=== PATIENT | male | born 1980 | race American Indian/Alaskan Native ===

== ENCOUNTER 2019-10-23 01:04 | Emergency (ER) | payer MEDICARE ==
--- NOTE | 2019-10-23 01:43 | Emergency Department Report ---
<DAVID HENRY - Last Filed: 10/23/19 04:31> ED Psych HPI - General Chief Complaint: Psych Stated Complaint: MH EVALUATION Time Seen by Provider: 10/23/19 01:37 Source: patient, police Mode of arrival: Ambulatory - History of Present Illness Initial Comments: 39-year-old male reports history of bipolar, schizophrenia, presents to ED with suicidal ideation. Patient reports he is fed up with life, states "life is not perfect," and states he wants to . Patient reported to police officers that he wanted to cut his wrists. Patient reports he has been off of his psychiatric medications for several months. Patient admits to drinking tonight, denies any drug use. MD Complaint: suicidal ideation -: During the night Associated Psychiatric Symptoms: depression, suicidal ideation Quality: constant Improves With: none Worsens With: none Context: recent alcohol abuse, not taking psychiatric Associated Symptoms: denies other symptoms Treatments Prior to Arrival: none If Self Harm: has plan (to cut wrists) - Related Data Allergies Allergy/AdvReac Type Severity Reaction Status Date / Time No Known Allergies Allergy Unverified 10/23/19 01:26 ED Review of Systems Comment: All other systems reviewed and negative Psychiatric: depression, suicidal thoughts. denies: auditory hallucinations, visual hallucinations, homicidal thoughts ED Past Medical Hx - Past Medical History Previous Medical History?: Yes Hx Psychiatric Treatment: Yes (Bipolar with schizophrenia tendencies) Additional medical history: Chronic Back PaIN - Surgical History Past Surgical History?: No - Social History Smoking Status: Current Every Day Smoker Substance Use Type: Alcohol, Marijuana ED Physical Exam - General Limitations: No Limitations General appearance: alert, in no apparent distress - Head Head exam: Present: atraumatic, normocephalic - Eye Eye exam: Present: normal appearance, EOMI - ENT ENT exam: Present: mucous membranes moist - Neck Neck exam: Present: normal inspection - Respiratory Respiratory exam: Present: normal lung sounds bilaterally. Absent: respiratory distress - Cardiovascular Cardiovascular Exam: Present: regular rate, normal rhythm - GI/Abdominal GI/Abdominal exam: Present: soft. Absent: distended, tenderness - Extremities Exam Extremities exam: Present: normal inspection - Neurological Exam Neurological exam: Present: alert, oriented X3 - Psychiatric Psychiatric exam: Present: normal affect, normal mood - Skin Skin exam: Present: warm, dry, intact, normal color ED Medical Decision Making - Lab Data Result diagrams: 10/23/19 01:38 10/23/19 01:38 ED Disposition Clinical Impression: Alcohol intoxication, Suicidal ideation Disposition: DC/TX-65 PSY HOSP/PSY UNIT Condition: Stable <BRISANATALIE - Last Filed: 10/23/19 15:21> ED Review of Systems ROS: Stated complaint: MH EVALUATION Other details as noted in HPI ED Course Vital Signs 10/23/19 10/23/19 10/23/19 01:25 01:27 08:17 Temperature 97.3 F L 98 F 98.5 F Pulse Rate 88 96 H 81 Respiratory 18 18 18 Rate Blood Pressure 103/53 Blood Pressure 107/59 146/62 [Left] O2 Sat by Pulse 96 100 97 Oximetry 10/23/19 14:37 Temperature 98.0 F Pulse Rate 92 H Respiratory 18 Rate Blood Pressure Blood Pressure 135/81 [Left] O2 Sat by Pulse 99 Oximetry ED Medical Decision Making - Lab Data Result diagrams: 10/23/19 01:38 10/23/19 01:38 - Medical Decision Making I was approached by the psychiatric rehanger regarding the need for a 1013. The patient had some information filled out by the state highway police officer but there was no 1013 at that time. The patient has active depression and suicidal ideations with a plan to cut his wrist. Patient came in last night with alcohol intoxication with a blood alcohol level of 0.34. At this time his blood alcohol level should be under the legal limit and he is certainly sober. He still expresses suicidal ideations. For this reason I have made the patient a 1013. He also complains of some nausea, abdominal cramping, and it is possible he is starting to exhibit signs of alcohol withdrawal. The patient has been placed on the alcohol withdrawal protocol. He does not appear to have any hallucinations, delusions, or signs of delirium tremens. Vital signs stable throughout his ED course thus far. The patient appears medically cleared for psychiatric placement. - Differential Diagnosis Depression, bipolar disorder, substance abuse Critical Care Time: No Critical care attestation.: If time is entered above; I have spent that time in minutes in the direct care of this critically ill patient, excluding procedure time. ED Disposition Is pt being admited?: No
[2019-10-23 01:49] LABS: Basophils # (Auto) 0.1 K/mm3 (0.0-0.1); Basophils % (Auto) 0.9 % (0.0-1.8); Eosinophils # (Auto) 0.3 K/mm3 (0.0-0.4); Eosinophils % (Auto) 3.2 % (0.0-4.3); Lymphocytes # (Auto) 3.9 K/mm3 (1.2-5.4); Mean Corpuscular HGB Conc 35 % (32-34); Mean Corpuscular Volume 97 fl (84-94); Monocytes # (Auto) 0.8 K/mm3 (0.0-0.8); Monocytes % (Auto) 8.5 % (0.0-7.3); Platelet Count 269 K/mm3 (140-440); Red Blood Count 5.05 M/mm3 (3.65-5.03)
[2019-10-23 02:05] LABS: Bilirubin,Urine NEG (Negative); Color,Urine Straw (Yellow)
[2019-10-23 02:06] LABS: Blood,Urine NEG (Negative); Protein,Urine <15 mg/dL mg/dL (Negative); Urobilinogen,Urine < 2.0 mg/dL (<2.0); WBC,Urine < 1.0 /HPF (0.0-6.0)
[2019-10-23 02:10] LABS: BUN/Creatinine Ratio 13; Blood Urea Nitrogen 13 mg/dL (9-20); Hemolysis Index 14
[2019-10-23 02:10] LABS: Amphetamine Screen,Urine PRESUMPTIVE NEGATIVE; Benzodiazepines Screen,Urine PRESUMPTIVE NEGATIVE; Cannabinoid Screen,Urine PRESUMPTIVE NEGATIVE; Cocaine Screen,Urine PRESUMPTIVE NEGATIVE; Methadone Screen,Urine PRESUMPTIVE NEGATIVE; Opiate Screen,Urine PRESUMPTIVE NEGATIVE
[2019-10-23] MEDS ORDERED: LORazepam 2 MG/ML VIAL IV PRN (15:01)
[2019-10-23] MEDS ORDERED: chlordiazePOXIDE 25 MG CAP PO PRN (15:01)
[2019-10-23] MEDS: chlordiazePOXIDE 25 MG CAP PO PRN ×2 (15:23→17:14)
--- NOTE | 2019-10-23 15:26 | XRay Report ---
ABDOMEN 2 VIEW(S) INDICATION / CLINICAL INFORMATION: Abd pain. COMPARISON: None available. FINDINGS: TUBES / LINES: None. BOWEL GAS PATTERN/EXTRALUMINAL GAS: No significant abnormality. No free air. ADDITIONAL FINDINGS: Lung bases are clear. IMPRESSION: 1. No acute abnormality. Signer Name: Abhinav Lyons MD Signed: 10/23/2019 3:21 PM Workstation Name: [id number]
[2019-10-23 15:52] LABS: Alanine Aminotransferase 27 units/L (7-56); Albumin 4.5 g/dL (3.9-5)
[2019-10-23 15:54] LABS: Bilirubin,Direct < 0.2 mg/dL (0-0.2)
[2019-10-23 16:14] VITALS: BP 113/66
== END 2019-10-23 19:34 ==
LOC: ED 01:04
DX: R45.851 Suicidal ideations (principal); F25.0 Schizoaffective disorder, bipolar type; G89.29 Other chronic pain; F17.200 Nicotine dependence, unspecified, uncomplicated; F12.90 Cannabis use, unspecified, uncomplicated; Z72.89 Other problems related to lifestyle
CPT/HCPCS: 36415; 74019; 80048; 80076; 80307; 80320; 81001; 85025; G0480

== ENCOUNTER 2020-12-03 21:19 | Emergency (ER) | payer MEDICARE ==
--- NOTE | 2020-12-03 22:52 | Event Note ---
ED Screening Note Date of service: 12/03/20 Time: 22:50 ED Screening Note: Patient is a 40-year-old -[place] male with a history of chronic alcohol abuse who presents to the ED requesting for alcohol detox. Patient states that he has never been to alcohol detoxification program and admits that he has been drinking alcohol for the last 20 years heavily. Patient denies suicidal or homicidal ideations, hallucinations, nausea, vomiting, abdominal pain, chest pain, shortness of breath, fever, chills, cough, dizziness or palpitations and seizures or syncope. This initial assessment/diagnostic orders/clinical plan/treatment(s) is/are subject to change based on patients health status, clinical progression and re- assessment by fellow clinical providers in the ED. Further treatment and workup at subsequent clinical providers discretion. Patient/guardian urged not to elope from the ED as their condition may be serious if not clinically assessed and managed. Initial orders include: CBC, CMP, UA, urine drug screen, blood alcohol level, acetaminophen level, salicylate level
[2020-12-03 23:54] LABS: Basophils # (Auto) 0.1 K/mm3 (0.0-0.1); Basophils % (Auto) 0.8 % (0.0-1.8); Eosinophils # (Auto) 0.5 K/mm3 (0.0-0.4); Eosinophils % (Auto) 6.4 % (0.0-4.3); Hematocrit 46.4 % (35.5-45.6); Hemoglobin 16.3 gm/dl (11.8-15.2); Lymphocytes # (Auto) 3.5 K/mm3 (1.2-5.4); Lymphocytes % (Auto) 49.1 % (13.4-35.0); Mean Corpuscular HGB Conc 35 % (32-34); Mean Corpuscular Volume 97 fl (84-94); Monocytes # (Auto) 0.4 K/mm3 (0.0-0.8); Monocytes % (Auto) 6.2 % (0.0-7.3); Red Blood Count 4.77 M/mm3 (3.65-5.03); Red Cell Distribution Width 13.8 % (13.2-15.2)
[2020-12-03 23:56] LABS: Platelet Count 131 K/mm3 (140-440)
[2020-12-04 00:01] LABS: BUN/Creatinine Ratio 23; Blood Urea Nitrogen 23 mg/dL (9-20); Calcium 9.1 mg/dL (8.4-10.2); Hemolysis Index 9
--- NOTE | 2020-12-04 00:22 | Emergency Department Report ---
ED Alcohol HPI - General Chief Complaint: Alcohol Stated Complaint: ETOH Time Seen by Provider: 12/04/20 00:16 Source: patient Mode of arrival: Stretcher Limitations: No Limitations - History of Present Illness Initial Comments: Patient is 40 years old male with history of chronic alcoholism and bipolar disorder. Patient presented to the ER requesting medical clearance for alcohol detox. Patient stated that he has been drinking daily for the last 20 years. Patient denies any suicidal or homicidal ideation. No visual or auditory hallucination. MD Complaint: desires rehab, medical clearance for det Chronic Alcohol Use: Yes Recent Trauma: No Associated Symptoms: denies other symptoms Treatments Prior to Arrival: none - Related Data Allergies Allergy/AdvReac Type Severity Reaction Status Date / Time No Known Allergies Allergy Unverified 10/23/19 01:26 ED Review of Systems ROS: Stated complaint: ETOH Other details as noted in HPI Comment: All other systems reviewed and negative Constitutional: denies: chills, fever Respiratory: denies: cough, shortness of breath, SOB with exertion Cardiovascular: denies: chest pain, palpitations Gastrointestinal: denies: abdominal pain, nausea, vomiting Musculoskeletal: denies: back pain Neurological: denies: headache, weakness ED Past Medical Hx - Past Medical History Previous Medical History?: Yes Hx Psychiatric Treatment: Yes (Bipolar with schizophrenia tendencies) Additional medical history: Chronic Back PaIN - Surgical History Past Surgical History?: No - Social History Smoking Status: Current Every Day Smoker Substance Use Type: Alcohol ED Physical Exam - General Limitations: No Limitations General appearance: alert, in no apparent distress - Head Head exam: Present: atraumatic, normocephalic, normal inspection - Eye Eye exam: Present: normal appearance - ENT ENT exam: Present: normal exam, normal orophraynx, mucous membranes moist - Neck Neck exam: Present: normal inspection, full ROM. Absent: tenderness, meningismus - Respiratory Respiratory exam: Present: normal lung sounds bilaterally - Cardiovascular Cardiovascular Exam: Present: regular rate, normal rhythm, normal heart sounds - GI/Abdominal GI/Abdominal exam: Present: soft, normal bowel sounds. Absent: distended, tenderness, guarding, rebound, rigid, organomegaly, mass, bruit, pulsatile mass, hernia - Extremities Exam Extremities exam: Present: normal inspection, full ROM, normal capillary refill. Absent: pedal edema, calf tenderness - Back Exam Back exam: Present: normal inspection, full ROM. Absent: CVA tenderness (R), CVA tenderness (L) - Neurological Exam Neurological exam: Present: alert, oriented X3, CN II-XII intact - Psychiatric Psychiatric exam: Present: normal mood. Absent: depressed, agitated, anxious, flat affect, manic, homicidal ideation, suicidal ideation - Skin Skin exam: Present: warm, intact, normal color ED Course Vital Signs 12/03/20 12/04/20 12/04/20 22:41 00:19 00:30 Temperature 97.8 F Pulse Rate 98 H 81 87 Respiratory 18 13 21 Rate Blood Pressure 119/78 122/76 122/76 O2 Sat by Pulse 96 97 95 Oximetry ED Medical Decision Making - Lab Data Result diagrams: 12/03/20 23:03 12/03/20 23:03 - Medical Decision Making Patient is 40 years old male with history of chronic alcoholism and bipolar disorder. Patient presented to the ER requesting medical clearance for alcohol detox. Patient stated that he has been drinking daily for the last 20 years. Patient denies any suicidal or homicidal ideation. No visual or auditory hallucination. Patient remained stable in the ER. Patient asked for food. Patient still denying any suicidal homicidal ideation. Patient will be referred to outpatient alcohol detox center. Critical care attestation.: If time is entered above; I have spent that time in minutes in the direct care of this critically ill patient, excluding procedure time. ED Disposition Clinical Impression: Alcohol abuse Disposition: DC-01 TO HOME OR SELFCARE Is pt being admited?: No Condition: Stable Instructions: Alcohol Use Disorder Additional Instructions: Patient is medically cleared to be admitted for alcohol detox program. Referrals: PRIMARY CARE, [Primary Care Provider] - 3-5 Days
[2020-12-04 01:13] LABS: Bilirubin,Urine NEG (Negative); Blood,Urine NEG (Negative); Color,Urine Straw (Yellow); Protein,Urine <15 mg/dL mg/dL (Negative); RBC,Urine < 1.0 /HPF (0.0-6.0); Urobilinogen,Urine < 2.0 mg/dL (<2.0); WBC,Urine < 1.0 /HPF (0.0-6.0)
[2020-12-04 01:22] LABS: Amphetamine Screen,Urine PRESUMPTIVE NEGATIVE; Benzodiazepines Screen,Urine PRESUMPTIVE NEGATIVE; Cannabinoid Screen,Urine PRESUMPTIVE NEGATIVE; Cocaine Screen,Urine PRESUMPTIVE NEGATIVE; Methadone Screen,Urine PRESUMPTIVE NEGATIVE; Opiate Screen,Urine PRESUMPTIVE NEGATIVE
[2020-12-04 01:30] VITALS: BP 102/59
== END 2020-12-04 01:30 | disposition home or self-care (01) ==
LOC: ED 21:19
DX: F10.10 Alcohol abuse, uncomplicated (principal); F31.9 Bipolar disorder, unspecified; F17.200 Nicotine dependence, unspecified, uncomplicated
CPT/HCPCS: 36415; 80048; 80307; 80320; 81001; 85025; G0480

== ENCOUNTER 2021-04-11 09:18 | Emergency (ER) | payer MEDICARE ==
[2021-04-11 10:36] VITALS: BP 155/91
--- NOTE | 2021-04-11 11:09 | Emergency Department Report ---
ED General Adult HPI - General Chief complaint: Back Pain/Injury Stated complaint: LEFT FOOT,BACK PAIN PUI?: No Time Seen by Provider: 04/11/21 11:02 Source: patient Mode of arrival: Ambulatory Limitations: No Limitations - History of Present Illness Initial comments: Chief complaint: "My back hurts. I think I broke my toe." HPI: She is a 40-year-old male with history of bipolar disorder and lumbar herniated disc who presents with right pinky toe pain after kicking a door 2 weeks ago. The toe was black and blue. Swelling has improved. 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 He was previously followed by pain management physician for "bulging disks". He received oxycodone and Robaxin. Denies leg weakness, stool fecal incontinence, direct trauma. He denies fever or drug use. He currently takes Prozac and BuSpar as a medication. -: Gradual, week(s) (2 weeks), month(s) (3 months) Location: back (Lower back), lower extremity (Right lower extremity) Severity scale (0 -10): 7 Quality: aching Consistency: constant Improves with: rest, other (Time) Worsens with: none Associated Symptoms: denies other symptoms - Related Data Previous Rx's Medication Instructions Recorded Last Taken Type Ibuprofen [Motrin 400 MG tab] 400 mg PO TID 5 Days #15 tablet 04/11/21 Unknown Rx methOCARBAMOL [Robaxin TAB] 1,000 mg PO Q6H PRN #30 tab 04/11/21 Unknown Rx Allergies Allergy/AdvReac Type Severity Reaction Status Date / Time No Known Allergies Allergy Unverified 10/23/19 01:26 ED Review of Systems ROS: Stated complaint: LEFT FOOT,BACK PAIN Other details as noted in HPI Comment: All other systems reviewed and negative Constitutional: denies: fever Respiratory: denies: cough Cardiovascular: denies: chest pain Gastrointestinal: denies: abdominal pain Musculoskeletal: back pain ED Past Medical Hx - Past Medical History Previous Medical History?: Yes Hx Psychiatric Treatment: Yes (Bipolar with schizophrenia tendencies) Additional medical history: Chronic Back PaIN - Surgical History Past Surgical History?: No - Social History Smoking Status: Current Every Day Smoker Substance Use Type: Alcohol - Medications Home Medications: Home Medications Medication Instructions Recorded Confirmed Last Taken Type Ibuprofen [Motrin 400 MG tab] 400 mg PO TID 5 Days #15 tablet 04/11/21 Unknown Rx methOCARBAMOL [Robaxin TAB] 1,000 mg PO Q6H PRN #30 tab 04/11/21 Unknown Rx ED Physical Exam - General Limitations: No Limitations General appearance: alert, in no apparent distress - Head Head exam: Present: atraumatic, normocephalic - Eye Eye exam: Present: normal appearance - ENT ENT exam: Present: mucous membranes moist - Neck Neck exam: Present: normal inspection, full ROM - Respiratory Respiratory exam: Present: normal lung sounds bilaterally. Absent: respiratory distress, wheezes, rales, rhonchi - Cardiovascular Cardiovascular Exam: Present: regular rate, normal rhythm, normal heart sounds. Absent: systolic murmur, diastolic murmur, rubs, gallop - GI/Abdominal GI/Abdominal exam: Present: soft, normal bowel sounds. Absent: distended, tenderness, guarding, rebound - Rectal Rectal exam: Present: deferred - Extremities Exam Extremities exam: Present: normal inspection - Expanded Lower Extremity Exam Right Lower Leg exam: Present: normal inspection, full ROM. Absent: tenderness, swelling Ankle exam: Present: normal inspection, full ROM. Absent: tenderness, swelling Foot/Toe exam: Present: normal inspection, full ROM. Absent: tenderness, swelling, abrasion, deformity Neuro vascular tendon exam: Present: no vascular compromise - Back Exam Back exam: Present: normal inspection, full ROM. Absent: tenderness, CVA tenderness (R), CVA tenderness (L), muscle spasm, paraspinal tenderness, vertebral tenderness - Neurological Exam Neurological exam: Present: alert, oriented X3, normal gait (Brisk steady gait appears comfortable) - Psychiatric Psychiatric exam: Present: normal affect, normal mood - Skin Skin exam: Present: warm, dry, intact, normal color. Absent: rash ED Course Vital Signs 04/11/21 10:34 Temperature 98.3 F Pulse Rate 68 Respiratory 18 Rate Blood Pressure 155/91 O2 Sat by Pulse 98 Oximetry ED Medical Decision Making - Medical Decision Making 1. Right toe contusion: Well-healed without indication fracture 2. Chronic back pain with history of lumbar degenerative disc disease prescribed ibuprofen Robaxin referred to center specialists Critical care attestation.: If time is entered above; I have spent that time in minutes in the direct care of this critically ill patient, excluding procedure time. ED Disposition Clinical Impression: Contusion of fifth toe, right, Lumbar degenerative disc disease, Acute lumbar myofascial strain Disposition: 01 HOME / SELF CARE / HOMELESS Is pt being admited?: No Does the pt Need Aspirin: No Condition: Stable Instructions: Back Injury Prevention Prescriptions: Ibuprofen [Motrin 400 MG tab] 400 mg PO TID 5 Days #15 tablet methOCARBAMOL [Robaxin TAB] 1,000 mg PO Q6H PRN #30 tab PRN Reason: Muscle Spasm Referrals: CAROLE NULL II, MD [Staff Physician] - 3-5 Days
== END 2021-04-11 11:09 | disposition home or self-care (01) ==
LOC: ED 09:18
DX: S39.012A Strain of muscle, fascia and tendon of lower back, initial encounter (principal); S90.121A Contusion of right lesser toe(s) without damage to nail, initial encounter; M51.36 Other intervertebral disc degeneration, lumbar region; F20.9 Schizophrenia, unspecified; F31.9 Bipolar disorder, unspecified; M54.9 Dorsalgia, unspecified; F17.200 Nicotine dependence, unspecified, uncomplicated; X58.XXXA Exposure to other specified factors, initial encounter; Y93.89 Activity, other specified; Y92.89 Other specified places as the place of occurrence of the external cause; Y99.8 Other external cause status
CPT/HCPCS: 99281

== ENCOUNTER 2021-12-22 20:54 | Emergency (ER) | payer MEDICARE ==
[2021-12-22] MEDS ORDERED: clonazePAM 0.5 MG TAB PO ONE (22:06)
[2021-12-22] MEDS ORDERED: LORazepam 2 MG/ML VIAL IV PRN ×3 (22:06)
--- NOTE | 2021-12-22 22:11 | Emergency Department Report ---
HPI - General Chief Complaint: Psych Time Seen by Provider: 12/22/21 21:59 - HPI HPI: Room 25 The patient is a 41-year-old male present with a chief complaint of suicidal ideation and med refill. The patient states he has been out of his Klonopin for the past 2 weeks. Patient states he came to the emergency department as needed medication. Patient does admit to suicidal ideation x1 day. Patient denies any attempts or having an active plan. ED Past Medical Hx - Past Medical History Hx Psychiatric Treatment: Yes (Bipolar with schizophrenia tendencies) Additional medical history: Chronic Back PaIN - Surgical History Past Surgical History?: No - Family History Family history: no significant - Social History Smoking Status: Current Every Day Smoker (1/2 pack/day) Substance Use Type: None (Denies illicit drug use), Alcohol (Six pack of beer daily) - Medications Home Medications: Home Medications Medication Instructions Recorded Confirmed Last Taken Type Ibuprofen [Motrin 400 MG tab] 400 mg PO TID 5 Days #15 tablet 04/11/21 Unknown Rx methOCARBAMOL [Robaxin TAB] 1,000 mg PO Q6H PRN #30 tab 04/11/21 Unknown Rx Buspar 12 mg PO TID 12/22/21 12/22/21 Unknown History Depakote ER 500 mg PO BID 12/22/21 12/22/21 Unknown History FLUoxetine HCL 20 mg PO DAILY 12/22/21 12/22/21 Unknown History KlonoPIN 1 mg PO BID 12/22/21 12/22/21 12/22/21 History traZODone 150 mg PO HS 12/22/21 12/22/21 Unknown History ED Review of Systems ROS: Stated complaint: MH/DEPRESSION/SUICIDAL Other details as noted in HPI Constitutional: no symptoms reported Eyes: denies: eye pain ENT: denies: throat pain Respiratory: no symptoms reported Cardiovascular: denies: chest pain Endocrine: no symptoms reported Gastrointestinal: denies: abdominal pain Genitourinary: denies: dysuria Musculoskeletal: denies: myalgia Neurological: denies: headache Psychiatric: suicidal thoughts Physical Exam - Physical Exam Vital Signs: Vital Signs 12/22/21 21:15 Temperature 97.2 F L Pulse Rate 97 H Respiratory 18 Rate Blood Pressure 116/72 O2 Sat by Pulse 96 Oximetry Physical Exam: GENERAL: The patient is well-developed well-nourished male lying on stretcher not appearing to be in acute distress. [] HEENT: Normocephalic. Extraocular motions are intact. Patient has moist mucous membranes. NECK: Supple. Trachea midline CHEST/LUNGS: Clear to auscultation. There is no respiratory distress noted. HEART/CARDIOVASCULAR: Regular. There is no tachycardia. There is a 2/6 systolic murmur ABDOMEN: Abdomen is soft, nontender. Patient has normal bowel sounds. There is no abdominal distention. SKIN: There is no rash. There is no edema. There is no diaphoresis. NEURO: The patient is awake, alert, and oriented. The patient is cooperative. The patient has no focal neurologic deficits. The patient has normal speech. GCS 15 MUSCULOSKELETAL: There is no evidence of acute injury. ED Course Vital Signs 12/22/21 21:15 Temperature 97.2 F L Pulse Rate 97 H Respiratory 18 Rate Blood Pressure 116/72 O2 Sat by Pulse 96 Oximetry ED Medical Decision Making - Lab Data Result diagrams: 12/22/21 21:42 12/22/21 21:42 Laboratory Tests 12/22/21 12/22/21 12/22/21 21:42 21:42 21:42 WBC 10.2 RBC 5.41 H Hgb 18.6 H Hct 54.0 H MCV 100 H MCH 34 H MCHC 34 RDW 14.2 Plt Count 229 Lymph # (Auto) Parent Aide Add Manual Diff Complete Total Counted 100 Seg Neuts % (Manual) 44.0 Band Neutrophils % 1.0 Lymphocytes % (Manual) 42.0 H Reactive Lymphs % (Man) 0 Monocytes % (Manual) 6.0 Eosinophils % (Manual) 7.0 H Basophils % (Manual) 0 Metamyelocytes % 0 Myelocytes % 0 Promyelocytes % 0 Blast Cells % 0 Nucleated RBC % Not Reportable Seg Neutrophils # Man 4.5 Band Neutrophils # 0.1 Lymphocytes # (Manual) 4.3 Abs React Lymphs (Man) 0.0 Monocytes # (Manual) 0.6 Eosinophils # (Manual) 0.7 H Basophils # (Manual) 0.0 Metamyelocytes # 0.0 Myelocytes # 0.0 Promyelocytes # 0.0 Blast Cells # 0.0 WBC Morphology Not Reportable Hypersegmented Neuts Not Reportable Hyposegmented Neuts Not Reportable Hypogranular Neuts Not Reportable Smudge Cells Not Reportable Toxic Granulation Not Reportable Toxic Vacuolation Not Reportable Dohle Bodies Not Reportable Pelger-Huet Anomaly Not Reportable Sharla Rods Not Reportable Platelet Estimate Cons Clumped Platelets Not Reportable Plt Clumps, EDTA Not Reportable Large Platelets Not Reportable Giant Platelets Few Platelet Satelliting Not Reportable Plt Morphology Comment Not Reportable RBC Morphology Normal Dimorphic RBCs Not Reportable Polychromasia Not Reportable Hypochromasia Not Reportable Poikilocytosis Not Reportable Anisocytosis Not Reportable Microcytosis Not Reportable Macrocytosis Not Reportable Spherocytes Not Reportable Pappenheimer Bodies Not Reportable Sickle Cells Not Reportable Target Cells Not Reportable Tear Drop Cells Not Reportable Ovalocytes Not Reportable Helmet Cells Not Reportable Hernandez-[address] Bodies Not Reportable Metcalf Rings Not Reportable [place] Cells Not Reportable Bite Cells Not Reportable Crenated Cell Not Reportable Elliptocytes Not Reportable Acanthocytes (Spur) Not Reportable Rouleaux Not Reportable Hemoglobin C Crystals Not Reportable Schistocytes Not Reportable Malaria parasites Not Reportable William Bodies Not Reportable Hem Pathologist Commnt No Sodium 133 L Potassium 3.8 Chloride 91.7 L Carbon Dioxide 21 L Anion Gap 24 BUN 23 H Creatinine 1.2 Estimated GFR > 60 BUN/Creatinine Ratio 19 Glucose 98 Calcium 10.2 Urine Color Urine Turbidity Urine pH Ur Specific Garrett Urine Protein Urine Glucose (UA) Urine Ketones Urine Blood Urine Nitrite Urine Bilirubin Urine Urobilinogen Ur Leukocyte Esterase Urine WBC (Auto) Urine RBC (Auto) Salicylates < 0.3 L Urine Opiates Screen Urine Methadone Screen Acetaminophen Ur Barbiturates Screen Valproic Acid Ur Phencyclidine Scrn Ur Amphetamines Screen U Benzodiazepines Scrn Urine Cocaine Screen U Marijuana (THC) Screen Drugs of Abuse Note 12/22/21 12/22/21 12/22/21 21:42 22:00 Unknown WBC RBC Hgb Hct MCV MCH MCHC RDW Plt Count Lymph # (Auto) Add Manual Diff Total Counted Seg Neuts % (Manual) Band Neutrophils % Lymphocytes % (Manual) Reactive Lymphs % (Man) Monocytes % (Manual) Eosinophils % (Manual) Basophils % (Manual) Metamyelocytes % Myelocytes % Promyelocytes % Blast Cells % Nucleated RBC % Seg Neutrophils # Man Band Neutrophils # Lymphocytes # (Manual) Abs React Lymphs (Man) Monocytes # (Manual) Eosinophils # (Manual) Basophils # (Manual) Metamyelocytes # Myelocytes # Promyelocytes # Blast Cells # WBC Morphology Hypersegmented Neuts Hyposegmented Neuts Hypogranular Neuts Smudge Cells Toxic Granulation Toxic Vacuolation Dohle Bodies Pelger-Huet Anomaly Sharla Rods Platelet Estimate Clumped Platelets Plt Clumps, EDTA Large Platelets Giant Platelets Platelet Satelliting Plt Morphology Comment RBC Morphology Dimorphic RBCs Polychromasia Hypochromasia Poikilocytosis Anisocytosis Microcytosis Macrocytosis Spherocytes Pappenheimer Bodies Sickle Cells Target Cells Tear Drop Cells Ovalocytes Helmet Cells [address] Bodies Metcalf Rings Malathi Cells Bite Cells Crenated Cell Elliptocytes Acanthocytes (Spur) Rouleaux Hemoglobin C Crystals Schistocytes Malaria parasites William Bodies Hem Pathologist Commnt Sodium Potassium Chloride Carbon Dioxide Anion Gap BUN Creatinine Estimated GFR BUN/Creatinine Ratio Glucose Calcium Urine Color Straw Urine Turbidity Clear Urine pH 6.0 Ur Specific Garrett 1.006 Urine Protein 30 mg/dl Urine Glucose (UA) Neg Urine Ketones Neg Urine Blood Mod Urine Nitrite Neg Urine Bilirubin Neg Urine Urobilinogen < 2.0 Ur Leukocyte Esterase Neg Urine WBC (Auto) 1.0 Urine RBC (Auto) 1.0 Salicylates Urine Opiates Screen Urine Methadone Screen Acetaminophen 5.0 L Ur Barbiturates Screen Valproic Acid 43.9 L Ur Phencyclidine Scrn Ur Amphetamines Screen U Benzodiazepines Scrn Urine Cocaine Screen U Marijuana (THC) Screen Drugs of Abuse Note 12/22/21 Unknown WBC RBC Hgb Hct MCV MCH MCHC RDW Plt Count Lymph # (Auto) Add Manual Diff Total Counted Seg Neuts % (Manual) Band Neutrophils % Lymphocytes % (Manual) Reactive Lymphs % (Man) Monocytes % (Manual) Eosinophils % (Manual) Basophils % (Manual) Metamyelocytes % Myelocytes % Promyelocytes % Blast Cells % Nucleated RBC % Seg Neutrophils # Man Band Neutrophils # Lymphocytes # (Manual) Abs React Lymphs (Man) Monocytes # (Manual) Eosinophils # (Manual) Basophils # (Manual) Metamyelocytes # Myelocytes # Promyelocytes # Blast Cells # WBC Morphology Hypersegmented Neuts Hyposegmented Neuts Hypogranular Neuts Smudge Cells Toxic Granulation Toxic Vacuolation Dohle Bodies Pelger-Huet Anomaly Sharla Rods Platelet Estimate Clumped Platelets Plt Clumps, EDTA Large Platelets Giant Platelets Platelet Satelliting Plt Morphology Comment RBC Morphology Dimorphic RBCs Polychromasia Hypochromasia Poikilocytosis Anisocytosis Microcytosis Macrocytosis Spherocytes Pappenheimer Bodies Sickle Cells Target Cells Tear Drop Cells Ovalocytes Helmet Cells [address] Bodies Metcalf Rings Malathi Cells Bite Cells Crenated Cell Elliptocytes Acanthocytes (Spur) Rouleaux Hemoglobin C Crystals Schistocytes Malaria parasites William Bodies Hem Pathologist Commnt Sodium Potassium Chloride Carbon Dioxide Anion Gap BUN Creatinine Estimated GFR BUN/Creatinine Ratio Glucose Calcium Urine Color Urine Turbidity Urine pH Ur Specific Garrett Urine Protein Urine Glucose (UA) Urine Ketones Urine Blood Urine Nitrite Urine Bilirubin Urine Urobilinogen Ur Leukocyte Esterase Urine WBC (Auto) Urine RBC (Auto) Salicylates Urine Opiates Screen Presumptive negative Urine Methadone Screen Presumptive negative Acetaminophen Ur Barbiturates Screen Presumptive negative Valproic Acid Ur Phencyclidine Scrn Presumptive negative Ur Amphetamines Screen Presumptive negative U Benzodiazepines Scrn Presumptive negative Urine Cocaine Screen Presumptive negative U Marijuana (THC) Screen Presumptive negative Drugs of Abuse Note Disclamer - Differential Diagnosis Suicidal ideation Critical care attestation.: If time is entered above; I have spent that time in minutes in the direct care of this critically ill patient, excluding procedure time. ED Disposition Clinical Impression: Suicidal ideation Disposition: [address] [place] [address] Is pt being admited?: No Does the pt Need Aspirin: No Condition: Stable Time of Disposition: 02:16 (Awaiting acceptance)
[2021-12-22 22:24] LABS: BUN/Creatinine Ratio 19; Blood Urea Nitrogen 23 mg/dL (9-20); Calcium 10.2 mg/dL (8.4-10.2); Hemolysis Index 9
[2021-12-22 22:28] LABS: Hemoglobin 18.6 gm/dl (11.8-15.2); Mean Corpuscular HGB Conc 34 % (32-34); Mean Corpuscular Volume 100 fl (84-94); Platelet Count 229 K/mm3 (140-440); Red Blood Count 5.41 M/mm3 (3.65-5.03); Red Cell Distribution Width 14.2 % (13.2-15.2)
[2021-12-22] MEDS ORDERED: SODIUM CHLORIDE 0.9% 1000 ML 1,000 ML IV ONE (22:39)
[2021-12-22 22:50] LABS: Bilirubin,Urine NEG (Negative); Blood,Urine MOD (Negative); Color,Urine Straw (Yellow); Urobilinogen,Urine < 2.0 mg/dL (<2.0)
[2021-12-22 22:58] LABS: Amphetamine Screen,Urine PRESUMPTIVE NEGATIVE; Benzodiazepines Screen,Urine PRESUMPTIVE NEGATIVE; Cannabinoid Screen,Urine PRESUMPTIVE NEGATIVE; Cocaine Screen,Urine PRESUMPTIVE NEGATIVE; Methadone Screen,Urine PRESUMPTIVE NEGATIVE; Opiate Screen,Urine PRESUMPTIVE NEGATIVE
[2021-12-23 00:26] LABS: Band Neutrophils # (Manual) 0.1 K/mm3; Basophils % (Manual) 0 % (0.0-1.8); Total Cells Counted 100
[2021-12-23 00:28] LABS: Giant Platelets Few; Platelet Estimate Cons; RBC Morphology Normal
--- NOTE | 2021-12-23 10:40 | Consultation ---
History of Present Illness - Reason for Consult Consult date: 12/23/21 Reason for consult: Mental health evaluation - History of Present Psychiatric Illness ED Note:The patient is a 41-year-old male present with a chief complaint of suicidal ideation and med refill. The patient states he has been out of his Klonopin for the past 2 weeks. Patient states he came to the emergency department as needed medication. Patient does admit to suicidal ideation x1 day. Patient denies any attempts or having an active plan. The patient is a 41 year old male with history of bipolar disorder. In my encounter with the patient, he is calm, alert and oriented x3. The patient states he ran out of his psychotropic medications and will be seeing his psychiatrist on 12/26. He denies any current suicidal/homicidal ideation and denies hallucinations. PAST PSYCHIATRIC HISTORY: Diagnose: Bipolar disorder Suicide attempts or Self-harm behavior: Denies Prior psychiatric hospitalizations: Yes Substance Abuse history: Denies Previous psychiatric medications tried: Buspar, Prozac, Depakote, Klonopin, Zyprexa, Trazodone Outpatient treatment: Unknown PAST MEDICAL HISTORY: unknown Family Psychiatric History: None reported or documented SOCIAL HISTORY Marital Status: Single Living Arrangements: Unknown Employment Status: Unknown Access to guns/weapons: Denies Education:GED History of Abuse: Denies Legal History: Denies REVIEW OF SYSTEMS Constitutional: Negative for weight loss ENT: Negative for stridor Respiratory: Negative for cough or hemoptysis All other systems reviewed and are negative MENTAL STATUS EXAMINATION General Appearance and Behavior: Age appropriate, good hygiene, wearing appropriate clothes. cooperative Cooperation: Cooperative Psychomotor Behavior: Psychomotor normal Mood: Depressed Affect and affective range: Congruent Thought Process: Goal directed Thought Content: Reality oriented Speech: Normal Suicidal Ideation: Denies Homicidal Ideation: Denies Hallucinations: Denies Delusions: None elicited Impulse Control: Normal Insight and Judgment: Limited insight and judgment Memory: Limited Attention: attentive Orientation: a/o x 3 Assessment (1) HX Bipolar Treatment Plan Continue home meds Will restart home meds. Sitter: per primary Medical: per primary Disposition: Do not recommend acute psychiatric inpatient treatment. [employer] Customer Experience Advisor will provide patient with psychiatric out patient resources Will sign off. Thanks [facility] staffed with Dr. Perez Medications and Allergies Medications and Allergies Allergies Allergy/AdvReac Type Severity Reaction Status Date / Time Penicillins Allergy Itching Verified 04/29/22 22:07 ziprasidone [From Geodon] AdvReac Itching Verified 12/22/21 22:08 Home Medications Medication Instructions Recorded Confirmed Last Taken Type Ibuprofen [Motrin 400 MG tab] 400 mg PO TID 5 Days #15 tablet 04/11/21 Unknown Rx methOCARBAMOL [Robaxin TAB] 1,000 mg PO Q6H PRN #30 tab 04/11/21 Unknown Rx Buspar 12 mg PO TID 12/22/21 12/22/21 Unknown History Depakote ER 500 mg PO BID 12/22/21 12/22/21 Unknown History FLUoxetine HCL 20 mg PO DAILY 12/22/21 12/22/21 Unknown History KlonoPIN 1 mg PO BID 12/22/21 12/22/21 12/22/21 History traZODone 150 mg PO HS 12/22/21 12/22/[address] [DepaKOTE DR] 500 mg PO BID 30 Days #60 tab 12/23/21 Unknown Rx FLUoxetine [PROzac] 20 mg PO QDAY 30 Days #30 capsule 12/23/21 Unknown Rx OLANzapine [ZyPREXA] 5 mg PO QHS 30 Days #30 12/23/21 Unknown Rx busPIRone [Buspar] 10 mg PO BID 30 Days #60 tab 12/23/21 Unknown Rx traZODone [Desyrel] 50 mg PO QHS PRN 30 Days #30 tab 12/23/21 Unknown Rx Active Meds: Active Medications Lorazepam (Lorazepam 2 Mg/Ml Vial) 2 mg IV Q1HR PRN PRN Reason: CIWA-Ar 8-15 Lorazepam (Lorazepam 2 Mg/Ml Vial) 4 mg IV Q1HR PRN PRN Reason: CIWA-Ar 16-25 Lorazepam (Lorazepam 2 Mg/Ml Vial) 4 mg IV Q15MIN PRN PRN Reason: CIWA-Ar >25 Mental Status Exam - Vital signs Last Vital Signs Temp 97.2 F L 12/22/21 21:15 Pulse 97 H 12/22/21 21:15 Resp 18 12/22/21 21:15 BP 116/72 12/22/21 21:15 Pulse Ox 100 12/22/21 22:08 Results Result Diagrams: 12/22/21 21:42 12/22/21 21:42 Abnormal lab results 12/22/21 12/22/21 12/22/21 Range/Units 21:42 21:42 21:42 RBC 5.41 H (3.65-5.03) M/mm3 Hgb 18.6 H (11.8-15.2) gm/dl Hct 54.0 H (35.5-45.6) % MCV 100 H (84-94) fl MCH 34 H (28-32) pg Lymphocytes % (Manual) 42.0 H (13.4-35.0) % Eosinophils % (Manual) 7.0 H (0.0-4.3) % Eosinophils # (Manual) 0.7 H (0.0-0.4) K/mm3 Sodium 133 L (137-145) mmol/L Chloride 91.7 L (98-107) mmol/L Carbon Dioxide 21 L (22-30) mmol/L BUN 23 H (9-20) mg/dL Salicylates < 0.3 L (2.8-20.0) mg/dL Acetaminophen (10.0-30.0) ug/mL Valproic Acid (50-100) ug/mL 12/22/21 12/22/21 Range/Units 21:42 22:00 RBC (3.65-5.03) M/mm3 Hgb (11.8-15.2) gm/dl Hct (35.5-45.6) % MCV (84-94) fl MCH (28-32) pg Lymphocytes % (Manual) (13.4-35.0) % Eosinophils % (Manual) (0.0-4.3) % Eosinophils # (Manual) (0.0-0.4) K/mm3 Sodium (137-145) mmol/L Chloride (98-107) mmol/L Carbon Dioxide (22-30) mmol/L BUN (9-20) mg/dL Salicylates (2.8-20.0) mg/dL Acetaminophen 5.0 L (10.0-30.0) ug/mL Valproic Acid 43.9 L (50-100) ug/mL All other labs normal.
[2021-12-23 11:30] VITALS: BP 170/81
--- NOTE | 2021-12-23 13:26 | Event Note ---
Date: 12/23/21 The patient was evaluated in the emergency department for symptoms described in the history of present illness. He/she was evaluated in the context of the global COVID-19 pandemic, which necessitated consideration that the patient might be at risk for infection with the virus that causes COVID-19. Institutional protocols and algorithms that pertain to the evaluation of patients at risk for COVID-19 are in a state of rapid change based on information released by regulatory bodies including the CDC and federal and state organizations. These policies and algorithms were followed during the patient's care in the emergency department. Please note that these policies, procedures and recommendations changed on a rapid basis. Laboratory studies, vital signs, nursing documentation, ER documentation, and psychiatric documentation are reviewed and appreciated. Nursing team reports no acute events this morning or concerns. The patient is awake and ambulating and does not appear to be in any acute distress. The patient was deemed medically suitable for psychiatric disposition and placement during his initial ER evaluation. The patient continues to remain medically suitable for psychiatric placement and disposition. The psychiatric team have advised that this patient does not meet criteria for 1013 hold or involuntary confinement. Therefore, discharged with outpatient follow-up Vital Signs 12/22/21 12/22/21 12/22/21 21:15 21:20 22:08 Temperature 97.2 F L Pulse Rate 97 H Respiratory 18 Rate Blood Pressure 116/72 Blood Pressure [Left] O2 Sat by Pulse 96 100 100 Oximetry 12/23/21 11:26 Temperature 97.2 F L Pulse Rate 90 Respiratory 18 Rate Blood Pressure Blood Pressure 170/81 [Left] O2 Sat by Pulse 98 Oximetry nursing team report no acute issues this evening
== END 2021-12-23 13:53 | disposition home or self-care (01) ==
LOC: ED 20:54
DX: R45.851 Suicidal ideations (principal); F31.9 Bipolar disorder, unspecified; F17.200 Nicotine dependence, unspecified, uncomplicated; Z20.822 Contact with and (suspected) exposure to COVID-19
CPT/HCPCS: 36415; 80048; 80164; 80307; 81001; 85007; 85025; 96360; 99285; J7030; U0003; 80320; G0480